=== PATIENT | male | born 1960 | race Caucasian/White ===

== ENCOUNTER 2017-06-19 11:30 | Day surgery (SDC) | payer OTHER ==
[~2017-06-19 11:30] MED LIST: Lactated Ringers 1,000 ML IV SCH; Lidocaine 2% 5 ML SDV ONE; Propofol 200 MG/20 ML SDV ONE; fentaNYL 100 MCG/2 ML SDV ONE
--- NOTE | 2017-06-19 11:57 | PCM.PREANE ---
Preanesthetic Assessment - Anesthesia/Transfusion/Family Hx Anesthesia History: Prior Anesthesia Without Reaction Family History of Anesthesia Reaction: No Transfusion History: No Prior Transfusion(s) Intubation History: Unknown - Review of Systems General: No Symptoms Pulmonary: No Symptoms Cardiovascular: No Symptoms Gastrointestinal: No Symptoms, Other (s/p hemicolectomy for cancer 06/21) Neurological: No Symptoms Other: Reports: None - Physical Assessment O2 Sat by Pulse Oximetry: 98 Respiratory Rate: 16 Vital Signs: Last Vital Signs Temp 36.2 C 06/19/17 11:52 Pulse 57 L 06/19/17 11:52 Resp 16 06/19/17 11:52 BP 138/81 06/19/17 11:52 Pulse Ox 98 06/19/17 11:52 Height: 1.78 m Weight: 109.316 kg ASA Class: 2 Mental Status: Alert & Oriented x3 Airway Class: Mallampati = 2 Dentition: Reports: Normal Dentition, [place](s) (temporary cronwm upper left ( back)) Thyro-Mental Finger Breadths: 3 Mouth Opening Finger Breadths: 3 ROM/Head Extension: Full Lungs: Clear to Auscultation, Normal Respiratory Effort Cardiovascular: Regular Rate, Regular Rhythm - Allergies Allergies/Adverse Reactions: Allergies Allergy/AdvReac Type Severity Reaction Status Date / Time No Known Allergies Allergy Verified 05/31/16 07:42 - Blood Blood Available: No - Anesthesia Plan Pre-Op Medication Ordered: None - Acknowledgements Anesthesia Type Planned: MAC Pt an Appropriate Candidate for the Planned Anesthesia: Yes Alternatives and Risks of Anesthesia Discussed w Pt/Guardian: Yes Pt/Guardian Understands and Agrees with Anesthesia Plan: Yes PreAnesthesia Questionnaire HEENT History: Reports: None Gastrointestinal History: Reports: Colon Polyp Genitourinary History: Reports: None Musculoskeletal History: Reports: Fracture Other Musculoskeletal History: hx fx left hand with cast application Endocrine/Metabolic History: Reports: Obesity/BMI 30+ Oncologic (Cancer) History: Reports: Colon (rt. hemicolectomy 06/21/16) Dermatologic History: Reports: Psoriasis - Past Surgical History Head Surgeries/Procedures: Reports: None HEENT Surgical History: Reports: Cataract Surgery GI Surgical History: Reports: Colon, Colonoscopy (x3) Other GI Surgeries/Procedures: rt hemicolectomy for colon cancer - SUBSTANCE USE Smoking Status *Q: Never Smoker Days Per Week of Alcohol Use: 7 Number of Drinks Per Day: 1 Total Drinks Per Week: 7 Recreational Drug Use History: No - HOME MEDS Home Medications: Home Meds . [No Known Home Meds] 06/15/17 [History] - CURRENT (IN HOUSE) MEDS Current Meds: Current Medications Lactated Ringer's (Ringers, Lactated) 1,000 mls @ 125 mls/hr IV ASDIRECTED KATHLEEN Last Admin: 06/19/17 11:53 Dose: 125 mls/hr Discontinued Medications Fentanyl (Sublimaze) Confirm Administered Dose 100 mcg .ROUTE .STK-MED ONE Stop: 06/19/17 08:38 Lidocaine (Xylocaine-Mpf 2%) Confirm Administered Dose 5 ml .ROUTE .STK-MED ONE Stop: 06/19/17 08:37 Propofol (Diprivan 20 Ml) Confirm Administered Dose 400 mg .ROUTE .STK-MED ONE Stop: 06/19/17 08:38
[2017-06-19] MEDS ORDERED: Glycopyrrolate 0.2 MG/ML SDV ONE (12:07)
--- NOTE | 2017-06-19 12:33 | PCM.OPNOTE ---
- General Post-Op/Procedure Note Date of Surgery/Procedure: 06/19/17 Operative Procedure(s): Colonoscopy Pre Op Diagnosis: Personal history of colon cancer Post-Op Diagnosis: No evidence of recurrent neoplasia Anesthesia Technique: MAC (ASA II) Primary Surgeon: Jose E Martinez Condition: Good Free Text/Narrative:: Dictation [id number] CPT CODE 32647
[2017-06-19] MEDS ORDERED: Lactated Ringers 1,000 ML IV SCH (12:45)
[2017-06-19 12:57] VITALS: BP 119/71
--- NOTE | 2017-06-19 22:26 | OR ---
SURGEON: Jose E Martinez M.D. DATE OF PROCEDURE: 06/19/2017 OPERATION PERFORMED: Colonoscopy. ANESTHESIA: MAC. ASA CLASSIFICATION: II. PREOPERATIVE DIAGNOSIS: Personal history of colon cancer. POSTOPERATIVE DIAGNOSIS: No evidence of recurrent neoplasia. DESCRIPTION OF PROCEDURE: The patient was taken to the endoscopy room, positioned on the endoscopy table in the left lateral decubitus position. Time-out was called for appropriate identification of the patient and procedure. Monitored anesthesia care was provided. The colonoscope was inserted into the rectum and advanced without difficulty to the proximal and transverse colon visualizing the anastomosis from his previous right hemicolectomy. The anastomosis was widely patent. There was no evidence of recurrent neoplastic disease at the anastomosis. The proximal colon was also visualized and shows no evidence of new or recurrent neoplasia. The colonoscope was then slowly withdrawn through the remainder of the transverse colon, splenic flexure, descending colon, sigmoid colon, and rectum. No other tumors or polyps were identified. No diverticular changes were noted, and there was no evidence of inflammatory bowel disease. Once the colonoscope was withdrawn to the rectum, it was retroflexed to visualize the anal orifice from above. Again no tumors or polyps were seen, and there were no acute hemorrhoidal changes. The colonoscope was then straightened, the rectum aspirated, and the colonoscope removed. The patient tolerated the procedure well and was taken to the recovery room in stable condition. ELIZABETH WALTON /[id number]
== END 2017-06-19 13:00 | disposition home or self-care (01) ==
LOC: MW.SDS 11:30
PROVIDERS: ATTEND Surgery
DX: Z08 Encounter for follow-up examination after completed treatment for malignant neoplasm (principal); L40.9 Psoriasis, unspecified; E66.9 Obesity, unspecified; Z68.34 Body mass index [BMI] 34.0-34.9, adult; Z85.038 Personal history of other malignant neoplasm of large intestine; Z86.010 Personal history of colon polyps; Z90.49 Acquired absence of other specified parts of digestive tract; Z98.49 Cataract extraction status, unspecified eye; Z98.890 Other specified postprocedural states; Z82.3 Family history of stroke; Z83.3 Family history of diabetes mellitus
CPT/HCPCS: 45378; J3010; J7120; 00811; J2704